=== PATIENT | female | born 1980 | race Caucasian/White ===

== ENCOUNTER 2019-08-27 08:00 | Inpatient (IN) | payer OTHER ==
[~2019-08-27] VITALS: Ht 152.4 cm; Wt 90.7 kg
[2019-08-27] MEDS ORDERED: FERREX 150 FOR1 EAC1 PO (09:45)
[2019-08-27] MEDS ORDERED: IRON325 MG PO (09:45)
== END 2019-09-04 08:40 | disposition home or self-care (01) | DRG 742 ==
LOC: OB/GYN 09-02 05:20 → O/R 09-02 05:20 → SURH 09-02 07:00 → O/R 09-02 08:00 → SURH 09-02 08:00 → OB/GYN 09-02 11:08
PROVIDERS: ADMIT Obstetrics & Gynecology
PROC: 0UT70ZZ Resection of Bilateral Fallopian Tubes, Open Approach (ICD-10-PCS; 2019-09-02)
PROC: 0UT20ZZ Resection of Bilateral Ovaries, Open Approach (ICD-10-PCS; 2019-09-02)
PROC: 0UT90ZZ Resection of Uterus, Open Approach (ICD-10-PCS; principal; 2019-09-02 07:00)
DX: D25.1 Intramural leiomyoma of uterus (principal); D62 Acute posthemorrhagic anemia; N72 Inflammatory disease of cervix uteri; N83.12 Corpus luteum cyst of left ovary; N83.11 Corpus luteum cyst of right ovary; N83.8 Other noninflammatory disorders of ovary, fallopian tube and broad ligament; N93.8 Other specified abnormal uterine and vaginal bleeding

== ENCOUNTER 2019-09-14 21:43 | Emergency (ER) | payer OTHER ==
[~2019-09-14] VITALS: Ht 152.4 cm; Wt 88.5 kg
[~2019-09-14 21:43] MED LIST: FERREX 150 FOR1 EAC1 PO; IRON325 MG PO
[2019-09-14] MEDS ORDERED: KETO10TA2 (21:54)
== END 2019-09-15 08:31 | disposition home or self-care (01) ==
LOC: ER 21:43
DX: N93.8 Other specified abnormal uterine and vaginal bleeding (principal)